=== PATIENT | female | born 1945 | race Caucasian/White ===

== ENCOUNTER → 2019-04-14 | Outpatient (CLI) | payer MEDICARE ==
[~2019-04-14] MED LIST: AMLO5 PO; ASPI81CH PO; ATEN100 PO; BENA20 PO; BUME2 PO; BUPR150ER PO; CLIN300 PO; DOCU100 PO; ERGO400 PO; ESTR2 PO; FURO40 PO; HYDACE5 PO; Hair, Skin & N1 EACH PO; LANS30EC PO; LEVSOD150 PO; LOSA50 PO; OMEP20ER PO; OXYACE5C PO; PRAV20 PO; Spironolactone50 MG PO
[2019-04-16 15:07] LABS: HPV 16 Negative (Negative); HPV 18 Negative (Negative); HPV OTHER HR TYPES Negative (Negative)
== END | disposition home or self-care (01) ==
LOC: LAB 17:46 → LAB SHORT 17:46
PROVIDERS: Obstetrics & Gynecology Gynecology
DX: N89.8 Other specified noninflammatory disorders of vagina (principal); Z91.89 Other specified personal risk factors, not elsewhere classified
CPT/HCPCS: 87070; 87205; 87624; G0123

== ENCOUNTER → 2019-09-16 | Outpatient (CLI) | payer MEDICARE | LOC: LAB SHORT 12:59 → LAB 12:59 | DX: R31.9 Hematuria, unspecified (principal) | CPT/HCPCS: 87086 ==

== ENCOUNTER 2020-11-10 09:16 | Day surgery (SDC) | payer MEDICARE ==
[~2020-11-10] VITALS: Ht 162.6 cm; Wt 91.9 kg
[~2020-11-10 09:16] MED LIST changes: +ASCO500 PO; +ATOR10 PO; +Aspir 8181 MG PO; +BUPR100 PO; +ESTRADIOL1 MG PO; +LEVSOD112 PO; +LOSARTAN POTAS100 M1 PO; +MULTI-VITAMIN1 EAC2 PO; +OMEPRAZOLE MAGN20 MG PO; +QVAR REDIHALE10.6 G2 INH; +VITAMIN D31000 UNI1 PO
== END 2020-11-10 11:39 | disposition home or self-care (01) ==
LOC: ORSCSDS 09:16
PROVIDERS: Surgery
PROC: 0DBN8ZX Excision of Sigmoid Colon, Via Natural or Artificial Opening Endoscopic, Diagnostic (ICD-10-PCS; principal; 2020-11-10 10:30)
PROC: 0DBL8ZX Excision of Transverse Colon, Via Natural or Artificial Opening Endoscopic, Diagnostic (ICD-10-PCS; principal; 2020-11-10 10:30)
DX: Z12.11 Encounter for screening for malignant neoplasm of colon (principal); D12.3 Benign neoplasm of transverse colon; D12.5 Benign neoplasm of sigmoid colon; Z86.010 Personal history of colon polyps; G47.33 Obstructive sleep apnea (adult) (pediatric); E03.9 Hypothyroidism, unspecified; I10 Essential (primary) hypertension; Z79.899 Other long term (current) drug therapy
CPT/HCPCS: 88305; J2704; J7120

== ENCOUNTER 2024-10-24 00:16 | Emergency (ER) | payer OTHER ==
[~2024-10-24] VITALS: Ht 162.6 cm; Wt 107.5 kg
[2024-10-24 00:31] VITALS: BP 133/66
== END 2024-10-24 02:16 | disposition left against medical advice (07) ==
LOC: ER 00:16
DX: M79.652 Pain in left thigh (principal); Z53.21 Procedure and treatment not carried out due to patient leaving prior to being seen by health care provider

== ENCOUNTER 2025-04-25 21:14 | Emergency (ER) | payer OTHER ==
[~2025-04-25] VITALS: Ht 162.6 cm; Wt 106.6 kg
[2025-04-25 21:19] VITALS: BP 154/73
[2025-04-25] MEDS ORDERED: RX Prepack 6 Tabs Oxycodone 5mg UD ONE (23:10)
[2025-04-25] MEDS ORDERED: RX Prepack 2 Tabs Ondansetron ODT 4MG UD ONE (23:10)
== END 2025-04-25 23:18 | disposition home or self-care (01) ==
LOC: ER 21:14
DX: M25.562 Pain in left knee (principal); E78.5 Hyperlipidemia, unspecified; I10 Essential (primary) hypertension; K21.9 Gastro-esophageal reflux disease without esophagitis; Z88.6 Allergy status to analgesic agent; Z88.5 Allergy status to narcotic agent; Z79.82 Long term (current) use of aspirin; Z79.890 Hormone replacement therapy; Z79.899 Other long term (current) drug therapy
CPT/HCPCS: 99283; A9270

== ENCOUNTER → 2025-05-30 | Outpatient (CLI) | payer OTHER | LOC: LAB 13:12 → LAB SHORT 13:12 | DX: N39.0 Urinary tract infection, site not specified (principal); R31.9 Hematuria, unspecified | CPT/HCPCS: 87077; 87086; 87186 ==